=== PATIENT | male | born 1990 | race Caucasian/White ===

== ENCOUNTER 2022-06-02 00:42 | Emergency (ER) | payer OTHER ==
[~2022-06-02] VITALS: Ht 182.9 cm; Wt 67.0 kg
[2022-06-02] MEDS ORDERED: CEPH-510 PO (03:17)
[2022-06-02] MEDS ORDERED: ACET-1158 PO (03:17)
[2022-06-02 03:47] VITALS: BP 122/65
== END 2022-06-02 03:47 | disposition home or self-care (01) ==
LOC: ER 00:42
DX: S01.01XA Laceration without foreign body of scalp, initial encounter (principal); Z90.89 Acquired absence of other organs; W01.0XXA Fall on same level from slipping, tripping and stumbling without subsequent striking against object, initial encounter; Y93.89 Activity, other specified; Y92.89 Other specified places as the place of occurrence of the external cause; Y99.8 Other external cause status
CPT/HCPCS: 12001